=== PATIENT | female | born 1990 | race Two or more races ===

== ENCOUNTER 2018-01-31 18:41 | Emergency (ER) | payer MEDICAID ==
[~2018-01-31] VITALS: Ht 154.9 cm; Wt 59.0 kg
[2018-01-31 19:38] LABS: APPEARANCE,URINE SLIGHTLY CLOUDY; BILIRUBIN, URINE NEGATIVE (NEGATIVE); GLUCOSE, URINE (UA) NEGATIVE (NEGATIVE); KETONES,URINE 1+ (NEGATIVE); LEUKOCYTE ESTERASE ,URINE 1+ (NEGATIVE); NITRITE,URINE NEGATIVE (NEGATIVE); PH,URINE 6 (4.5-8.0); PROTEIN,URINE NEGATIVE (NEGATIVE); UROBILINOGEN,URINE NORMAL MG/DL (0.0-1.0)
[2018-01-31 19:41] LABS: COLOR,URINE YELLOW
[2018-01-31 20:41] LABS: ANION GAP 7 mmol/L (5-15); BLOOD UREA NITROGEN 11 mg/dL (7-18); CALCIUM 9.4 MG/DL (8.5-10.1); CARBON DIOXIDE 28 MMOL/L (21-32); CHLORIDE 103 MMOL/L (98-107); CREATININE 0.9 MG/DL (0.55-1.30); SODIUM 138 MMOL/L (136-145)
[2018-01-31 20:46] LABS: BASOPHILS % (AUTO) 0.5 % (0.0-2.0); EOSINOPHILS % (AUTO) 0.2 % (0.0-3.0); HEMATOCRIT 37.6 % (37.0-47.0); HEMOGLOBIN 12.8 G/DL (12.0-16.0); LYMPHOCYTES % (AUTO) 14.2 % (20.0-45.0); MEAN CORPUSCULAR VOLUME 96 FL (80-99); MONOCYTES % (AUTO) 3.3 % (1.0-10.0); NEUTROPHILS % (AUTO) 81.9 % (45.0-75.0); PLATELET COUNT 322 K/UL (150-450); RED BLOOD COUNT 3.93 M/UL (4.20-5.40); RED CELL DISTRIBUTION WIDTH 11.8 % (11.6-14.8); WHITE BLOOD COUNT 15.6 K/UL (4.8-10.8)
[2018-01-31 20:47] LABS: ALANINE AMINOTRANSFERASE 35 U/L (12-78); ALBUMIN 3.1 G/DL (3.4-5.0); ALBUMIN/GLOBULIN RATIO 0.7 (1.0-2.7); ALKALINE PHOSPHATASE 59 U/L (46-116); ASPARTATE AMINO TRANSFERASE 28 U/L (15-37); BILIRUBIN,TOTAL 0.3 MG/DL (0.2-1.0)
--- NOTE | 2018-01-31 20:56 | Emergency Room Report ---
History of Present Illness General Chief Complaint: Abdominal Pain Source: Patient Present Illness HPI 27 YO Female presents to the emergency department complaining of 10 out of 10 in severity lower abdominal cramping pain x 2 days with nausea and vomiting 3 days. She reports she has been having difficulty with morning sickness but has not been prescribed any medications. Patient states that she is having difficulty with keeping food down, some success with fluids. Denies vaginal discharge, bleeding, fevers, chills or abdominal tenderness. Allergies: Coded Allergies: No Known Allergies (Unverified , 01/31/18) Patient History Past Medical History: see triage record Past Surgical History: none Pertinent Family History: none Last Menstrual Period: Does not remember Now: Yes : 1 Para: 0 Reviewed Nursing Documentation: PMH: Agreed; PSxH: Agreed Nursing Documentation-PMH Past Medical History: No History, Except For Hx Cardiac Problems: No - gallbladder removed; kidney stones and infection Review of Systems All Other Systems: negative except mentioned in HPI Physical Exam Vital Signs Date Time Temp Pulse Resp B/P (MAP) Pulse Ox O2 Delivery O2 Flow Rate FiO2 01/31/18 19:06 98.1 95 16 108/72 100 Room Air 98.1 Sp02 EP Interpretation: reviewed, normal General Appearance: no apparent distress, alert, GCS 15, non-toxic Head: normocephalic, atraumatic ENT: hearing grossly normal, normal voice Neck: full range of motion Respiratory: lungs clear, normal breath sounds, speaking full sentences Cardiovascular #1: regular rate, rhythm, normal capillary refill Gastrointestinal: normal bowel sounds, non tender, soft, non-distended, no guarding Rectal: deferred Genitourinary: normal inspection, no CVA tenderness Musculoskeletal: back normal, gait/station normal, normal range of motion, non- tender Neurologic: alert, oriented x3, responsive, motor strength/tone normal, sensory intact, speech normal, grossly normal Psychiatric: judgement/insight normal Skin: normal color, no rash, warm/dry, well hydrated Medical Decision Making PA Attestation Dr. Fox is my supervising Physician whom patient management has been discussed with. Diagnostic Impression: Primary Impression: Abdominal pain during Qualified Codes: O26.891 - Other specified related conditions, first trimester; R10.9 - Unspecified abdominal pain Additional Impression: Threatened miscarriage ER Course 27 YO Female presents to the emergency department complaining of 10 out of 10 in severity lower abdominal cramping pain x 2 days with nausea and vomiting 3 days. She reports she has been having difficulty with morning sickness but has not been prescribed any medications. Patient states that she is having difficulty with keeping food down, some success with fluids. Denies vaginal discharge, bleeding, fevers, chills or abdominal tenderness. Ddx considered but are not limited to: ectopic ,threatened miscarriage , renal calculi, UTI, ovarian cyst/abscess/or torsion just to name a few. Vital signs: are WNL, pt. is afebrile H&PE are most consistent with: Threatened miscarriage, dehydration mild. ORDERS: -CBC, CMP, Lipase: elevated wbc's otherwise unremarkable -Urine hcg- Positive -serum Hcg Quant: [id number]. -UA: suggestive of contamination will d/w pt. that urine will be cultured. OB US complete- normal intrauterine estimated at approx 17 weeks, 3 days gestation with a heart rate of 157 bpm. ED INTERVENTIONS: -NS Bolus IV - Pt. is tolerating oral fluids at this time without need for anti-emetic. DISCHARGE: At this time pt. is stable for d/c to home. Will provide printed patient care instructions, and any necessary prescriptions. Care plan and follow up instructions have been discussed with the patient prior to discharge. Labs Test 01/31/18 19:10 01/31/18 19:49 Urine Color Yellow Urine Appearance Slightly cloudy Urine pH 6 (4.5-8.0) Urine Specific [place] 1.020 (1.005-1.035) Urine Protein Negative (NEGATIVE) Urine Glucose (UA) Negative (NEGATIVE) Urine Ketones 1+ (NEGATIVE) Urine Blood 2+ (NEGATIVE) Urine Nitrite Negative (NEGATIVE) Urine Bilirubin Negative (NEGATIVE) Urine Urobilinogen Normal MG/DL (0.0-1.0) Urine Leukocyte Esterase 1+ (NEGATIVE) Urine RBC 10-15 /HPF (0 - 2) Urine WBC 20-30 /HPF (0 - 2) Urine Squamous Epithelial Cells Many /LPF (NONE/OCC) Urine Bacteria Few /HPF (NONE) Urine HCG, Qualitative Positive (NEGATIVE) White Blood Count 15.6 K/UL (4.8-10.8) Red Blood Count 3.93 M/UL (4.20-5.40) Hemoglobin 12.8 G/DL (12.0-16.0) Hematocrit 37.6 % (37.0-47.0) Mean Corpuscular Volume 96 FL (80-99) Mean Corpuscular Hemoglobin 32.5 PG (27.0-31.0) Mean Corpuscular Hemoglobin Concent 34.0 G/DL (32.0-36.0) Red Cell Distribution Width 11.8 % (11.6-14.8) Platelet Count 322 K/UL (150-450) Mean Platelet Volume 6.9 FL (6.5-10.1) Neutrophils (%) (Auto) 81.9 % (45.0-75.0) Lymphocytes (%) (Auto) 14.2 % (20.0-45.0) Monocytes (%) (Auto) 3.3 % (1.0-10.0) Eosinophils (%) (Auto) 0.2 % (0.0-3.0) Basophils (%) (Auto) 0.5 % (0.0-2.0) Sodium Level 138 MMOL/L (136-145) Potassium Level 4.0 MMOL/L (3.5-5.1) Chloride Level 103 MMOL/L (98-107) Carbon Dioxide Level 28 MMOL/L (21-32) Anion Gap 7 mmol/L (5-15) Blood Urea Nitrogen 11 mg/dL (7-18) Creatinine 0.9 MG/DL (0.55-1.30) Estimat Glomerular Filtration Rate > 60 mL/min (>60) Glucose Level 85 MG/DL (74-106) Calcium Level 9.4 MG/DL (8.5-10.1) Total Bilirubin 0.3 MG/DL (0.2-1.0) Aspartate Amino Transf (AST/SGOT) 28 U/L (15-37) Alanine Aminotransferase (ALT/SGPT) 35 U/L (12-78) Alkaline Phosphatase 59 U/L (46-116) Total Protein 7.4 G/DL (6.4-8.2) Albumin 3.1 G/DL (3.4-5.0) Globulin 4.3 g/dL Albumin/Globulin Ratio 0.7 (1.0-2.7) Lipase 129 U/L (73-393) Human Chorionic Gonadotropin, Quant 97573 mIU/mL (1-6) CT/MRI/US Diagnostic Results CT/MRI/US Diagnostic Results : Impression OB US complete- normal intrauterine estimated at approx 17 weeks, 3 days gestation with a heart rate of 157 bpm. Last Vital Signs Date Time Temp Pulse Resp B/P (MAP) Pulse Ox O2 Delivery O2 Flow Rate FiO2 01/31/18 19:06 98.1 95 16 108/72 100 Room Air 98.1 Disposition: HOME, SELF-CARE Condition: Stable Scripts Metoclopramide Hcl* (REGLAN*) 10 Mg Tablet 10 MG ORAL THREE TIMES A DAY, #20 TAB Prov: Coleen Rg 01/31/18 Vit #91/Fe Fum/Fa/Dha ( + DHA COMBO PACK) 1 Each Combo..pkg 1 EACH PO DAILY, #1 PACK 3 Refills Prov: Coleen Rg 01/31/18 Acetaminophen* (TYLENOL EXTRA STRENGTH*) 500 Mg Tablet 500 MG ORAL Q6H, #20 TAB 0 Refills Prov: Coleen Rg 01/31/18 Patient Instructions: Abdominal Pain During Additional Instructions: Take medications as directed. Follow up with a OBGYN within 3 days, even if your symptoms have resolved. Return sooner to ED if new symptoms occur, or current symptoms become worse. - Please note that this Emergency Department Report was dictated using [employer] pet ct technologist technology software, occasionally this can lead to erroneous entry secondary to interpretation by the dictation equipment. Coleen Rg Jan 31, 2018 20:56
[2018-01-31] MEDS ORDERED: Sodium Chloride 500ML 500 ML IV ONE (21:00)
[2018-01-31] MEDS ORDERED: TYLENOL EXTRA500 MG ORAL (21:05)
[2018-01-31] MEDS ORDERED: PRENATAL + DHA1 EAC1 PO (21:14)
[2018-01-31] MEDS ORDERED: REGLAN10 MG ORAL (21:17)
[2018-01-31 21:18] VITALS: BP 108/72
--- NOTE | 2018-02-01 10:51 | Diagnostic Imaging Report ---
Indication: Pelvic pain and positive test Technique: Transabdominal and transvaginal images Comparison: none Findings: There is a single live intrauterine , transverse lie. Posterior fundal placenta, clears the internal cervical os. Cervix is closed, endocervical canal measuring 4.8 cm in length. There is positive motion and heart activity. heart rate 157 bpm measurements as follows: Biparietal diameter 38 mm, 17 weeks 4 days; head circumference 142 mm, 17 weeks 3 days; abdominal circumference 121 mm, 17 weeks 5 days; femur length 24 mm, 17 weeks zero days. Estimated gestational age by average ultrasound measurements is 17 weeks 3 days. Estimated date of delivery 07/08/2018. Estimated gestational age by dates is not available Only limited assessment of the anatomy, due to early stage of , emergent nature of the exam. Normal cord insertion, stomach, spine, four-chamber heart demonstrated. Impression: 17 week 3 day, by average of ultrasound measurements, single live intrauterine . No unusual features
== END 2018-01-31 21:49 | disposition home or self-care (01) ==
LOC: EMR 19:47
DX: O26.892 Other specified pregnancy related conditions, second trimester (principal); R10.30 Lower abdominal pain, unspecified; Z3A.17 17 weeks gestation of pregnancy; O20.0 Threatened abortion
CPT/HCPCS: 36415; 76805; 80053; 81003; 81025; 83690; 84702; 85025; 87086; 87181; 99284; J7040